=== PATIENT | female | born 1960 | race Caucasian/White ===

== ENCOUNTER 2017-09-29 18:40 | Emergency (ER) | payer SELFPAY ==
[~2017-09-29] VITALS: Ht 167.6 cm; Wt 86.2 kg
[2017-09-29] MEDS ORDERED: cloNIDine HCL 0.1 MG TAB PO ONE (20:00)
[2017-09-29 20:11] LABS: Basophils # (auto) 0.1 uL; Basophils % (auto) 0.5 % (0.0-2.0); Eosinophils # (auto) 1.1 uL; Eosinophils % (auto) 7.6 % (0.0-7.0); Hematocrit 38.8 % (36.0-46.0); Lymphocytes % (auto) 21.4 % (10.0-50.0); Mean Corpuscular Hemoglobin 29.3 pg (28.0-32.0); Mean Corpuscular Hgb Conc. 33.4 g/dL (32.0-36.0); Mean Corpuscular Volume 87.8 fL (80.0-100.0); Monocytes # (auto) 0.8 uL; Monocytes % (auto) 5.4 % (0.0-12.0); Neutrophils # (auto) 9.1 uL; Neutrophils % (auto) 65.1 % (37.0-80.0); Platelet Count (auto) 288 10^3/uL (140-450); Red Blood Cells 4.42 10^6/uL (4.0-5.20); Red Cell Distribution Width 13.9 % (11.8-14.3)
[2017-09-29] MEDS ORDERED: KETOROLAC TROMETH 60MG/2ML VIAL IM ONE (20:15)
[2017-09-29] MEDS ORDERED: DIAZEPAM 5 MG TAB PO ONE (20:15)
[2017-09-29] MEDS ORDERED: HYDROcodone-ACET 10/325MG TAB PO ONE (20:15)
[2017-09-29 20:24] LABS: Alanine Aminotransferase 18 U/L (13-56); Albumin 3.8 g/dL (3.4-5.0); Anion Gap 11 (5-15); Aspartate Aminotransferase 8 U/L (15-37); BUN/Creatinine Ratio 15.6; Blood Urea Nitrogen 15 mg/dL (7-18); Calcium 8.6 mg/dL (8.5-10.1); Carbon Dioxide 21 mmol/L (21-32); Chloride 106 mmol/L (98-107); GFR African American 77 mL/min; GFR Non-African American 64 mL/min; Glucose 117 mg/dL (74-106); Potassium 3.7 mmol/L (3.5-5.1); Sodium 138 mmol/L (136-145)
[2017-09-29 20:28] LABS: Alkaline Phosphatase 70 U/L (45-117); Bilirubin, Total 0.6 mg/dL (0.2-1.0); Total Protein 7.4 g/dL (6.4-8.2)
[2017-09-30 00:30] VITALS: BP 138/80
== END 2017-09-30 00:32 | disposition home or self-care (01) ==
LOC: ER 18:40
DX: S33.5XXA Sprain of ligaments of lumbar spine, initial encounter (principal); M54.16 Radiculopathy, lumbar region; I10 Essential (primary) hypertension; M79.1 Myalgia; X50.0XXA Overexertion from strenuous movement or load, initial encounter; Y93.89 Activity, other specified; Y92.89 Other specified places as the place of occurrence of the external cause; Y99.8 Other external cause status
CPT/HCPCS: 36415; 71045; 72100; 80053; 84484; 85025; 93005; 96372; 99285; J1885